=== PATIENT | female | born 1960 | race Asian ===

== ENCOUNTER 2017-01-09 01:33 | Emergency (ER) | payer OTHER ==
[~2017-01-09] VITALS: Ht 157.5 cm; Wt 65.9 kg
[~2017-01-09 01:33] MED LIST: AMIL5TAB2 PO; AMLO10TA3 PO; LEVO50TA6 PO; LORA10CA PO; METO25TA99 PO; SERT50TA9 PO
[2017-01-09 01:44] VITALS: BP 139/93; PULSE 89; RESP 20; O2SAT 99
--- NOTE | 2017-01-09 01:48 | ED.REPORT ---
HPI-General Illness Date of Service Jan 09, 2017 ED Provider: Dr. Blake Howard D.O. A 56 year old female with a history of hypertension and depression presents to the ED with neck pain onset 00:00 this morning. The pain radiates down her right arm. Associated symptoms include dizziness, generalized weakness, shortness of breath, and diaphoresis. The neck pain resolved for a short time but has returned. She denies any chest pain or injury/trauma. She has no family history of heart disease or blood clots. Nursing Notes Stated Complaint: NECK,ARM PAIN Chief Complaint: General Complaint Nursing Notes Reviewed: Yes Allergies: Coded Allergies: No Known Drug Allergies (Verified Allergy, Unknown, 07/01/16) Scheduled Amiloride (Amiloride) 5 Mg Tablet 5 MG PO DAILY Amlodipine (Amlodipine) 10 Mg Tablet 10 MG PO DAILY Levothyroxine (Levothyroxine) 50 Mcg Tablet 50 MCG PO DAILY Loratadine (Claritin) 10 Mg Capsule 10 MG PO DAILY Metoprolol Succinate ER (Metoprolol Succinate ER) 25 Mg Tab.er.24h 25 MG PO DAILY Sertraline HCl (Sertraline) 50 Mg Tablet 50 MG PO DAILY General Time Seen by MD: 01:47 Chief Complaint Other (Neck pain) Hx Obtained From: Patient Arrived By: Walk-in Sudden in Onset?: Yes Symptom Duration: 1 - 4 hours Location: : Neck Quality: Painful Radiation: : Arm right Severity: Current: Moderate Severity: Maximum: Moderate Associated with: Reports: Diaphoresis, Dizziness, Shortness of breath, Denies: Fever Pertinent Negative: Relieved by nothing Context Related History: Reports Depression Recent Healthcare: No recent doctor visit Past Medical History Past Medical History Hypertension Depression Past Surgical History Colonoscopy Smoking History Unknown if Ever Smoker Social History Other Social History: Ambulatory Status Independent Review of Systems Full Review of Systems Constitutional: Reports: Weakness - generalized, Denies: Fever Respiratory: Reports: Shortness of breath, Denies: Non-productive cough Cardiovascular: Denies: Chest pain GI: Denies: Diarrhea, Vomiting Musculoskeletal: Reports: Neck pain Skin: Reports Diaphoresis Neurologic: Reports: Dizziness Complete sys rev & neg: except as marked. Physical Exam Vital Signs Vital Signs Date Time Temp Pulse Resp B/P Pulse Ox O2 Delivery O2 Flow Rate FiO2 01/09/17 01:44 36.7 89 20 139/93 99 Room Air Initial VS: Reviewed Head / Eyes: Atraumatic, Normocephalic ENT: Conjunctiva normal, No scleral icterus Neck: Supple, Non-tender, Full range of motion (with pain) Respiratory: Breath sounds normal, Clear to auscultation, No respiratory distress Cardiovascular: Regular rate & rhythm, Heart sounds normal Skin: Warm, Dry, No cyanosis Neurologic: Alert, Oriented, Nonfocal Psychiatric: Mood/affect normal, Behavior normal, Normal thought content General/Constitutional: Awake, Alert, No acute distress Interpretation & Diagnostics Lab Results Interpretation Result Diagram: 01/09/17 0145 01/09/17 0145 Test 01/09/17 01:45 White Blood Count 9.0th/mm3 (3.8-10.1) Red Blood Count 4.93mil/mm3 (3.90-5.20) Hemoglobin 13.7g/dL (12.0-15.6) Hematocrit 41.2% (35.0-46.0) Mean Corpuscular Volume 83.6fL (81-100) Mean Corpuscular Hemoglobin 27.8pg (27.0-35.0) Mean Corpuscular Hemoglobin Concent 33.3% (32.0-37.0) Red Cell Distribution Width 14.3% (12.3-15.4) Platelet Count 368bil/L (150-400) Neutrophils (%) (Auto) 41.0% (40-74) Lymphocytes (%) (Auto) 44.1% (14-46) Monocytes (%) (Auto) 9.9% (4-12) Eosinophils (%) (Auto) 4.1% (0-5) Basophils (%) (Auto) 0.7% (0-3) D-Dimer < 0.5mg/L (<0.50) Sodium Level 135mEq/L (134-144) Potassium Level 3.0mEq/L (3.5-5.2) Chloride Level 97mEq/L (97-108) Carbon Dioxide Level 26mmol/L (18-29) Blood Urea Nitrogen 13mg/dL (6-24) Creatinine 0.60mg/dL (0.57-1.00) Estimat Glomerular Filtration Rate 148mL/min (>59) Glucose Level 129mg/dL (60-99) Calcium Level 9.1mg/dL (8.5-10.1) Magnesium Level 1.9mg/dL (1.6-2.6) Total Bilirubin 0.3mg/dL (0.0-1.2) Aspartate Amino Transf (AST/SGOT) 23U/L (0-50) Alanine Aminotransferase (ALT/SGPT) 30U/L (0-32) Alkaline Phosphatase 54U/L (25-150) Troponin T 0.010ug/L (0.0-0.011) Total Protein 7.6g/dL (6.4-8.4) Albumin 4.2g/dL (3.4-5.0) Hold Hua Top Tube Received (Received) ECG Interpretation ECG Interpretation: Sinus rhythm rate 81 Abnormal R-wave progression, early transition Time: 01:48 Interpreted by: ED physician X-Ray Chest Interpretation Chest Xray Interpretation: Normal exam View: Portable, 1 view Interpretation / Wet Read by: Wet read ED physician Re-Eval/Medical Decision Med Decision/Clinical Course This is a very pleasant 56-year-old female without any significant medical history presents with rather impressive right-sided neck and right arm pain. She woke up tonight when she developed a sharp pain in her right shoulder seemed to radiate from the base of her right neck into her right arm. It made her feel little bit lightheaded at the onset. She said that the pain has since waxed and waned. 7 history of prior neck disease but nothing quite like this. On examination she has normal vitals. She has normal cardiopulmonary examination. Pulses are symmetric in all 4 extremities. Range of motion however did not reproduce or worsen the symptoms much. X-ray shows probably a tortuous aorta versus hiatal hernia. EKG shows no signs of ischemia. I am going to CT her chest to get a good look at her aorta as well as to rule out for pulmonary emboli. There is a good chance this is ongoing and musculoskeletal so she can be treated with ketorolac. I will sign this out to Dr. Ross however and recommend serial troponins. CT scan and troponins pending at this discharge. Patient currently resting comfortably. Source of Hx: Old records Time of Eval: 02:48 Patient Status: Condition improved Re-Evaluation/Progress Note: Discussed with patient x-ray and lab results with plan for CT and transfer of care to Dr. Ross. Counseled Regarding: Lab results, Other (Transfer of care to Dr. Ross) Discharge & Departure Shift Change Sign-Out Patient Care Transferred: Yes Discussed Complaint(s): Yes Laboratory Evaluation: Lab evaluation discussed Imaging Studies: Ordered, not yet done Response to Therapy: Improved Primary Impression: Neck pain Additional Impression: Arm pain Laterality: right Qualified Code: M79.601 - Pain in right arm Disposition: Home Discharge Condition All VS Reviewed: Yes Condition: Improved Referrals: Jj Maldonado MD (PCP) Care Transferred to: Dr. Ross Care Transferred at: 03:00 [facility] Attestation Portions of this note were transcribed by Archana Walton. I, Dr. Howard, personally performed the history, physical exam, and medical decision-making; I reviewed and confirmed the accuracy of the information in the transcribed note. Signed by: Karl Hooker, 01/09/2017, 03:00 copies to: Jj Maldonado MD, Todd P DO Jan 09, 2017 01:48 ARCHANA WALTON Jan 09, 2017 01:53
[2017-01-09 01:57] LABS: BASOPHILS % (AUTO) 0.7 % (0-3); EOSINOPHILS % (AUTO) 4.1 % (0-5); MONOCYTES % (AUTO) 9.9 % (4-12); Mean Corpuscular Hemoglobin 27.8 pg (27.0-35.0); Mean Corpuscular Volume 83.6 fL (81-100); Platelet Count 368 bil/L (150-400)
[2017-01-09 02:19] LABS: TROPONIN T 0.01 ug/L (0.0-0.011)
[2017-01-09 02:30] LABS: Magnesium 1.9 mg/dL (1.6-2.6)
[2017-01-09] MEDS ORDERED: FAMO20T PO (04:23)
[2017-01-09] MEDS ORDERED: NAPR500T PO (04:23)
[2017-01-09 04:42] VITALS: BP 110/59; PULSE 90; RESP 18; O2SAT 94
--- NOTE | 2017-01-09 16:59 | DRSVH ---
PROCEDURE: X-RAY CHEST ONE VIEW, PORTABLE ([id number]) INDICATIONS: CHEST PAIN, NECK PAIN TECHNIQUE: One view of the chest was acquired. COMPARISON: None. FINDINGS: Surgical changes and devices: None. Lungs and pleura: No pleural effusions or pneumothorax. Lungs are clear. Mediastinum: Mediastinal contours appear normal. Heart size is normal. Bones and chest wall: No suspicious bony lesions. Overlying soft tissues appear unremarkable. IMPRESSION: No acute cardiopulmonary disease. Dictated by: Bg Guo [facility] Interpreted: Cassie Peterson MD on 01/09/2017 at 9:04 Transcribed by: FCO on 01/09/2017 at 9:04 Approved by: Cassie Peterson MD, PhD on 01/09/2017 at 16:57
--- NOTE | 2017-01-15 14:41 | DRSVH ---
PROCEDURE: CT ANGIO CHEST PULMONARY EMBOLISM ([id number]) INDICATIONS: pleuritic pain, diaphoresis TECHNIQUE: After the administration of intravenous contrast, 2 mm thick sections acquired from the pulmonary api fox to the posterior costophrenic angles. 3-dimensional maximum intensity projection (MIP) coronal a nd sagittal reformats were then acquired through the thorax. For radiation dose reduction, the follo wing was used: automated exposure control, adjustment of mA and/or kV according to patient size. COMPARISON: None. FINDINGS: Image quality: Excellent. Pulmonary arteries: Pulmonary arteries are normal in size, and demonstrate no intraluminal filling d efects to suggest central pulmonary embolism. Lungs and pleura: Atelectasis noted in the midportion the lungs bilaterally. 4 mm calcified granuloma noted in the lingula of the left upper lobe. No pleural effusions or pneumothorax. Central and live pheral airways are patent. Mediastinum: Heart size is normal, without pericardial effusion. No mediastinal or hilar adenopathy . Thoracic aorta is normal in caliber and enhancement. Ectatic descending thoracic aorta is noted. Esophagus is normal in caliber, without hiatal hernia. Bones and chest wall: No suspicious bony lesions. Ribs and thoracic spine appear intact throughout. Thyroid gland is within normal limits. No axillary or supraclavicular adenopathy. Abdomen: Visualized upper abdominal solid organs appear normal in the early arterial phase of enhanc ement. IMPRESSION: No pulmonary embolus. Dictated by: Cassie Peterson MD, PhD on 01/09/2017 at 8:51 Approved by: Cassie Peterson MD, PhD on 01/09/2017 at 8:58
== END 2017-01-09 04:44 | disposition home or self-care (01) ==
LOC: SED 01:33
DX: M54.2 Cervicalgia (principal); M79.601 Pain in right arm; R53.1 Weakness; R06.02 Shortness of breath; R61 Generalized hyperhidrosis; I10 Essential (primary) hypertension
CPT/HCPCS: 36415; 71010; 71275; 80053; 83735; 84484; 85025; 85379; 93005; 96374; 99285; Q9967